=== PATIENT | female | born 1970 | race Caucasian/White ===

== ENCOUNTER 2021-12-16 17:34 | Emergency (ER) | payer OTHER ==
[~2021-12-16] VITALS: Ht 167.6 cm; Wt 92.1 kg
[2021-12-16] MEDS ORDERED: KETOROLAC TROMETHAMINE 30 MG/ML VIAL IV STA (17:52)
[2021-12-16] MEDS ORDERED: ONDANSETRON HCL INJ 2MG/ML 2ML 2 MG/ML VIAL IV STA (18:03)
[2021-12-16] MEDS ORDERED: ONDANSETRON ODT4 MG PO (18:07)
[2021-12-16] MEDS ORDERED: PANTOPRAZOLE SO20 MG (18:07)
[2021-12-16] MEDS ORDERED: ATIVAN1 MG PO (18:07)
[2021-12-16] MEDS ORDERED: FLONASE ALLERG9.9 ML INH (18:07)
[2021-12-16] MEDS ORDERED: CITALOPRAM10 MG/5 ML PO (18:07)
[2021-12-16] MEDS ORDERED: PROTONIX40 MG/ML (18:07)
[2021-12-16] MEDS ORDERED: ZYRTEC10 M3 (18:07)
[2021-12-16] MEDS ORDERED: PROVENTIL HFA6.7 GM INH (18:07)
[2021-12-16] MEDS ORDERED: ONDANSETRON HCL INJ 2MG/ML 2ML 2 MG/ML VIAL ONE (18:12)
[2021-12-16] MEDS ORDERED: KETOROLAC TROME10 MG PO (19:11)
== END 2021-12-16 19:50 | disposition home or self-care (01) ==
LOC: FSED 18:07
DX: R10.30 Lower abdominal pain, unspecified (principal); K57.30 Diverticulosis of large intestine without perforation or abscess without bleeding; K21.9 Gastro-esophageal reflux disease without esophagitis; D68.51 Activated protein C resistance; F32.A Depression, unspecified; K58.9 Irritable bowel syndrome, unspecified; F17.210 Nicotine dependence, cigarettes, uncomplicated
CPT/HCPCS: 74176; 80048; 80076; 81003; 81025; 85025; 96374; 96375; 99284; J1885; J2405